=== PATIENT | female | born 1970 | race Asian ===

== ENCOUNTER 2018-02-17 17:05 | Emergency (ER) | payer BC ==
[~2018-02-17] VITALS: Ht 154.9 cm; Wt 56.2 kg
[~2018-02-17 17:05] MED LIST: ALBU0.63 NEB; FLUT1BLS INH; IPRA3AMP NPPB; LEVO500T47 PO; NICO-485 TD; PRED10TA14 PO
[2018-02-17] MEDS ORDERED: ALBUTEROL/IPRATROPIUM 2.5MG/0.5MG, 3 ML NPPB ONE (17:30)
[2018-02-17] MEDS ORDERED: ALBUTEROL/IPRATROPIUM 2.5MG/0.5MG, 3 ML ONE (17:36)
[2018-02-17] MEDS ORDERED: ALBUTEROL SULFATE 2.5 MG/3 ML ONE (18:03)
[2018-02-17 19:30] VITALS: BP 144/87
== END 2018-02-17 19:32 | disposition home or self-care (01) ==
LOC: ED 18:00
DX: J45.41 Moderate persistent asthma with (acute) exacerbation (principal)
CPT/HCPCS: 71045; 93005; 94640; 99284; J7512; J7620

== ENCOUNTER 2018-04-28 22:36 | Emergency (ER) | payer BC ==
[~2018-04-28] VITALS: Ht 157.5 cm; Wt 55.0 kg
[2018-04-28 23:16] LABS: MEAN CORPUSCULAR HEMOGLOBIN 28.6 pg (27.0-34.8); MEAN CORPUSCULAR HGB CONC 32.8 g/dL (32.4-35.8); MEAN CORPUSCULAR VOLUME 87.1 fL (80-100); PLATELET COUNT 249 x10^3/uL (130-400); RED BLOOD COUNT 5.22 x10^6/uL (3.82-5.3); RED CELL DISTRIBUTION WIDTH 12.8 % (9.6-15.2)
[2018-04-28] MEDS ORDERED: ALBUTEROL SULFATE 2.5 MG/3 ML ONE (23:18)
[2018-04-28 23:27] LABS: ANION GAP 6 mmol/L (5-15); CALCIUM 9.2 mg/dL (8.5-10.1); CHLORIDE 108 mmol/L (98-107); CREATININE 1.17 mg/dL (0.55-1.02)
[2018-04-28 23:30] LABS: TROPONIN I < 0.015 ng/mL (0.000-0.045)
[2018-04-28] MEDS ORDERED: ALBUTEROL SULFATE 2.5 MG/3 ML NPPB ONE (23:30)
[2018-04-28 23:43] LABS: MD YES
[2018-04-28 23:45] LABS: BASOS#(MANUAL) 0.15 x10^3/uL (0-0.1); BASOS% (MANUAL) 1 % (0-1); EOS#(MANUAL) 2.07 x10^3/uL (0.0-0.4); EOS% (MANUAL) 14 % (1-7); LYMPH#(MANUAL) 2.66 x10^3/uL (1-3.4); LYMPHS% (MANUAL) 18 % (22-44); MONOS#(MANUAL) 0.59 x10^3/uL (0.3-2.7); MONOS% (MANUAL) 4 % (2-9); SEG#(MANUAL) 9.32 x10^3/uL (1.8-6.8); SEGS% (MANUAL) 63 % (42-75)
[2018-04-28 23:46] LABS: <PLATELET ESTIMATE> ADEQUATE; <RBC MORPHOLOGY> NORMAL; LARGE PLATELETS 1+
[2018-04-29] MEDS ORDERED: ALBUTEROL/IPRATROPIUM 2.5MG/0.5MG, 3 ML NPPB ONE
[2018-04-29] MEDS ORDERED: ALBUTEROL/IPRATROPIUM 2.5MG/0.5MG, 3 ML ONE (00:43)
[2018-04-29] MEDS ORDERED: KETOROLAC 30 MG/1 ML IM ONE (01:00)
[2018-04-29] MEDS ORDERED: KETOROLAC 30 MG/1 ML ONE (01:08)
[2018-04-29 01:50] VITALS: BP 152/97
[2018-04-29] MEDS ORDERED: ALBUTEROL SULFATE 2.5 MG/3 ML NPPB SCH (07:00)
== END 2018-04-29 02:00 | disposition home or self-care (01) ==
LOC: ED 23:37
DX: J44.1 Chronic obstructive pulmonary disease with (acute) exacerbation (principal); J45.31 Mild persistent asthma with (acute) exacerbation
CPT/HCPCS: 36415; 71045; 80048; 82040; 84484; 85025; 93005; 94640; 96372; 99285; J1885; J7512; J7613; J7620

== ENCOUNTER 2019-03-16 07:53 | Emergency (ER) | payer SELFPAY ==
[~2019-03-16] VITALS: Ht 157.5 cm; Wt 53.3 kg
[~2019-03-16 07:53] MED LIST changes: -IPRA3AMP NPPB; +IPRA3AMP30 NPPB
--- NOTE | 2019-03-16 08:13 | NUR ---
Pt to room from triage. Pt c/o SOB/wheezing x1 week. Pt states hx of asthma, no relief of sx with home neb and home inhaler. Pt with increased WOB, wheezing, tripoding. Pt speaking in 2 word sentences. RT called to administer neb tx per protocol. Pt placed in gown, positioned for comfort in bed with warm blanket. Continuous heart, oxygen and BP monitors applied, all safety measures observed.
[2019-03-16] MEDS ORDERED: ALBUTEROL/IPRATROPIUM 2.5MG/0.5MG, 3 ML ONE (08:17)
--- NOTE | 2019-03-16 08:45 | NUR ---
Pt states she is feeling much better after the breathing tx. Pt appears more relaxed, speaking in full sentences, still wheezing but less so. Pt positioned for comfort.
--- NOTE | 2019-03-16 08:45 | NUR ---
Dr. Alvares at bedside to evaluate pt.
[2019-03-16 08:56] LABS: BASOPHILS # (AUTO) 0.06 x10^3/uL (0-0.1); BASOPHILS % (AUTO) 0 % (0-1); EOSINOPHILS # (AUTO) 1.72 x10^3/uL (0-0.4); EOSINOPHILS % (AUTO) 12 % (1-7); LYMPHOCYTES # (AUTO) 1.97 x10^3/uL (1-3.4); LYMPHOCYTES % (AUTO) 13 % (22-44); MD NO; MEAN CORPUSCULAR HEMOGLOBIN 28.1 pg (27.0-34.8); MEAN CORPUSCULAR HGB CONC 32.6 g/dL (32.4-35.8); MEAN CORPUSCULAR VOLUME 86.2 fL (80-100); MEAN PLATELET VOLUME 9.9 fL (7.4-10.4); MONOCYTES # (AUTO) 0.95 x10^3/uL (0.2-0.8); MONOCYTES % (AUTO) 6 % (2-9); NEUTROPHILS # (AUTO) 10.06 x10^3/uL (1.8-6.8); NEUTROPHILS % (AUTO) 68 % (42-75); PLATELET COUNT 230 x10^3/uL (130-400); RED BLOOD COUNT 5.32 x10^6/uL (3.82-5.3); RED CELL DISTRIBUTION WIDTH 12.5 % (9.6-15.2)
--- NOTE | 2019-03-16 08:56 | NUR ---
Verbal order for Prednisone 60mg PO per Dr Cesario Alvares. Administered.
[2019-03-16] MEDS ORDERED: ALBUTEROL/IPRATROPIUM 2.5MG/0.5MG, 3 ML NPPB SCH (09:00)
[2019-03-16 09:02] LABS: ALBUMIN 3.6 g/dL (3.4-5.0); ANION GAP 9 mmol/L (5-15); CALCIUM 8.4 mg/dL (8.5-10.1); CHLORIDE 107 mmol/L (98-107); CREATININE 1.07 mg/dL (0.55-1.02)
--- NOTE | 2019-03-16 09:32 | NUR ---
Pt resting in bed with eyes closed, resp even and unlabored, NADN. Pt awakens easily to this RN entering room. Pt denies needs.
[2019-03-16 10:19] VITALS: BP 129/84
== END 2019-03-16 10:22 | disposition home or self-care (01) ==
LOC: ED 09:24
DX: J45.40 Moderate persistent asthma, uncomplicated (principal)
CPT/HCPCS: 36415; 71045; 80048; 82040; 85025; 93005; 94640; 99284; J7512; J7620

== ENCOUNTER 2019-04-18 19:13 | Emergency (ER) | payer SELFPAY ==
[~2019-04-18] VITALS: Ht 157.5 cm; Wt 54.3 kg
[2019-04-18] MEDS ORDERED: DIAZEPAM 5 MG TABLET PO ONE (19:30)
[2019-04-18] MEDS ORDERED: KETOROLAC 30 MG/1 ML IM ONE (19:30)
--- NOTE | 2019-04-18 19:54 | NUR ---
NA AT 194
[2019-04-18] MEDS ORDERED: DIAZEPAM 5 MG TABLET ONE (20:03)
[2019-04-18] MEDS ORDERED: KETOROLAC 30 MG/1 ML ONE (20:03)
--- NOTE | 2019-04-18 20:08 | NUR ---
ROOMED AT 2008
--- NOTE | 2019-04-18 20:13 | NUR ---
MEDICATED PER EMAR FOR STIFF NECK X 2 DAYS-ONSET UPON WAKING. DENIES FEVER/TRAUMA. NO PRIOR HX OF SIMILIAR SXS NO NEUROLOGICAL DEFICITS
[2019-04-18] MEDS ORDERED: DIAZEPAM 5 MG/ML, 2ML IM ONE (20:40)
--- NOTE | 2019-04-18 20:49 | NUR ---
REPORT TO RISHI
--- NOTE | 2019-04-18 20:50 | NUR ---
PATIENT REPORT PAIN IMPROVED TO 2/10, ABLE TO MOVE NECK W/OUT DIFFICULTY
[2019-04-18 21:36] VITALS: BP 129/89
== END 2019-04-18 21:38 | disposition home or self-care (01) ==
LOC: ED 21:08
DX: G24.3 Spasmodic torticollis (principal); J44.9 Chronic obstructive pulmonary disease, unspecified
CPT/HCPCS: 96372; 99283; J1885; J3360

== ENCOUNTER 2019-04-20 20:04 | Emergency (ER) | payer SELFPAY ==
[~2019-04-20] VITALS: Ht 157.5 cm; Wt 54.0 kg
[2019-04-20 20:11] VITALS: BP 120/82
[2019-04-20] MEDS ORDERED: KETOROLAC 30 MG/1 ML ONE (20:48)
[2019-04-20] MEDS ORDERED: DIAZEPAM 5 MG TABLET ONE (20:48)
[2019-04-20] MEDS ORDERED: KETOROLAC 30 MG/1 ML IM ONE (21:00)
[2019-04-20] MEDS ORDERED: DIAZEPAM 5 MG TABLET PO ONE (21:00)
== END 2019-04-20 21:46 | disposition home or self-care (01) ==
LOC: ED 21:32
DX: G24.3 Spasmodic torticollis (principal); H10.32 Unspecified acute conjunctivitis, left eye; J44.9 Chronic obstructive pulmonary disease, unspecified
CPT/HCPCS: 96372; 99283; J1885

== ENCOUNTER 2019-05-09 17:33 | Emergency (ER) | payer OTHER ==
[~2019-05-09] VITALS: Ht 157.5 cm; Wt 46.0 kg
[2019-05-09] MEDS ORDERED: NAPR-685 PO (17:51)
--- NOTE | 2019-05-09 17:52 | NUR ---
PT AMBULATORY TO ROOM. COMPLAINING OF BILATERAL FOOT AND KNEE PAIN AND SWELLING IN BILATERAL FEET. STATES SWELLING IN LEFT FOOT STARTED TWO WEEKS AGO AND SWELLING IN RIGHT FOOT STARTED TWO DAYS AGO. NADN. BLANKET GIVEN. VSS. CALL LIGHT IN REACH.
--- NOTE | 2019-05-09 18:47 | NUR ---
PT IN XRAY AT THIS TIME.
[2019-05-09 18:54] LABS: BASOPHILS # (AUTO) 0.08 x10^3/uL (0-0.1); BASOPHILS % (AUTO) 1 % (0-1); EOSINOPHILS # (AUTO) 0.56 x10^3/uL (0-0.4); EOSINOPHILS % (AUTO) 4 % (1-7); LYMPHOCYTES # (AUTO) 2.13 x10^3/uL (1-3.4); LYMPHOCYTES % (AUTO) 16 % (22-44); MD NO; MEAN CORPUSCULAR HEMOGLOBIN 28.8 pg (27.0-34.8); MEAN CORPUSCULAR HGB CONC 32.9 g/dL (32.4-35.8); MEAN CORPUSCULAR VOLUME 87.4 fL (80-100); MEAN PLATELET VOLUME 9.2 fL (7.4-10.4); MONOCYTES # (AUTO) 1.02 x10^3/uL (0.2-0.8); MONOCYTES % (AUTO) 8 % (2-9); NEUTROPHILS # (AUTO) 9.28 x10^3/uL (1.8-6.8); NEUTROPHILS % (AUTO) 71 % (42-75); PLATELET COUNT 363 x10^3/uL (130-400); RED BLOOD COUNT 4.65 x10^6/uL (3.82-5.3)
--- NOTE | 2019-05-09 18:55 | NUR ---
REPORT GIVEN TO DUTCH LÓPEZ.
--- NOTE | 2019-05-09 18:56 | NUR ---
REPORT RECEIVED FROM CORIE JUDD.
[2019-05-09 19:04] LABS: ALBUMIN 3.4 g/dL (3.4-5.0); ANION GAP 5 mmol/L (5-15); CALCIUM 8.8 mg/dL (8.5-10.1); CHLORIDE 109 mmol/L (98-107); CREATININE 0.95 mg/dL (0.55-1.02)
[2019-05-09] MEDS ORDERED: LIDOCAINE-MPF 1%, 5ML ONE (19:09)
[2019-05-09] MEDS ORDERED: KETOROLAC 30 MG/1 ML ONE (19:20)
[2019-05-09] MEDS ORDERED: KETOROLAC 60 MG/2 ML IM ONE (19:30)
[2019-05-09 19:32] VITALS: BP 168/91
--- NOTE | 2019-05-09 19:32 | NUR ---
PT MEDICATED PER EMAR FOR PAIN. PT TOLERATED WELL.
--- NOTE | 2019-05-09 19:35 | NUR ---
PT WHEELED TO BR AND BACK TO ROOM. UA SEND.
[2019-05-09 19:36] LABS: HCT (SEDRATE) 40.6 % (34.6-47.8)
[2019-05-09 20:06] LABS: MICROSCOPIC AUTO
[2019-05-09 20:08] LABS: CULTURE INDICATED? YES
--- NOTE | 2019-05-09 21:25 | NUR ---
PT GIVEN DC INSTRUCTIONS AND SCRIPTS. PT EDUCATED REGARDING DC MEDICATIONS. PT WHEELED TO DC. PT'S AOX4. RESPS EVEN AND UNLABORED. NO ACUTE DISTRESS AT DC.
[2019-05-13 17:29] LABS: ANA SCREEN POSITIVE (Negative); ANTI-NUCLEAR ANTIBODY PATTERN NUCLEOLAR
== END 2019-05-09 21:26 | disposition home or self-care (01) ==
LOC: ED 18:06
DX: M13.0 Polyarthritis, unspecified (principal)
CPT/HCPCS: 20610; 36415; 73564; 80048; 81001; 82040; 84550; 85025; 85651; 85810; 86038; 86140; 86430; 86618; 87070; 87086; 87147; 87205; 89050; 89060; 96372; 99284; J1885; 86039

== ENCOUNTER 2019-09-17 21:08 | Inpatient (IN) | payer OTHER ==
[~2019-09-17] VITALS: Ht 160 cm; Wt 54.8 kg
[~2019-09-17 21:08] MED LIST changes: +NAPR-685 PO
--- NOTE | 2019-09-17 21:13 | NUR ---
UNABLE TO EKG IN TRIAGE DUE TO DISTRESS
--- NOTE | 2019-09-17 21:17 | NUR ---
ERP IN TO EVAL. CALL PLACED TO RESP.
--- NOTE | 2019-09-17 21:21 | NUR ---
RESP THERAPIST AT BEDSIDE FOR BREATHING TX.
[2019-09-17] MEDS ORDERED: ALBUTEROL SULFATE 2.5 MG/3 ML NPPB ONE (21:30)
[2019-09-17 21:39] LABS: BASOPHILS # (AUTO) 0.27 x10^3/uL (0-0.1); BASOPHILS % (AUTO) 2 % (0-1); EOSINOPHILS # (AUTO) 0.98 x10^3/uL (0-0.4); EOSINOPHILS % (AUTO) 6 % (1-7); LYMPHOCYTES # (AUTO) 2.62 x10^3/uL (1-3.4); LYMPHOCYTES % (AUTO) 16 % (22-44); MD NO; MEAN CORPUSCULAR HEMOGLOBIN 25.7 pg (27.0-34.8); MEAN CORPUSCULAR HGB CONC 31.8 g/dL (32.4-35.8); MEAN CORPUSCULAR VOLUME 80.9 fL (80-100); MEAN PLATELET VOLUME 9.6 fL (7.4-10.4); MONOCYTES # (AUTO) 0.76 x10^3/uL (0.2-0.8); MONOCYTES % (AUTO) 5 % (2-9); NEUTROPHILS # (AUTO) 11.54 x10^3/uL (1.8-6.8); NEUTROPHILS % (AUTO) 71 % (42-75); PLATELET COUNT 255 x10^3/uL (130-400); RED BLOOD COUNT 5.22 x10^6/uL (3.82-5.3); RED CELL DISTRIBUTION WIDTH 14.6 % (9.6-15.2)
--- NOTE | 2019-09-17 21:41 | NUR ---
PT MEDICATED PER JAN. CONTINUES WITH RAPID RESP BUT IS ABLE TO SLOW RESP AND SPEAK FULL SENTENCES WITH LITTLE DIFFICULTY WHEN ASKED QUESTIONS. STATES SHE FEELS NO RELIEF AFTER BREATHING TX. WARM BLANKET GIVEN. ERP TO BE NOTIFIED OF PT STATUS. CALL LIGHT IN REACH.
[2019-09-17 21:48] LABS: ALBUMIN 3.9 g/dL (3.4-5.0); ANION GAP 8 mmol/L (5-15); CALCIUM 8.5 mg/dL (8.5-10.1); CHLORIDE 111 mmol/L (98-107); CREATININE 1.03 mg/dL (0.55-1.02)
[2019-09-17 21:52] LABS: TROPONIN I < 0.015 ng/mL (0.000-0.045)
--- NOTE | 2019-09-17 22:00 | NUR ---
ERP IN TO RECHECK PT. AWAITING FURTHER DISPO.
--- NOTE | 2019-09-17 22:47 | NUR ---
PT UP TO BR WITH STEADY GAIT. WHEEZING CONTINUES T/O. NO S/S OF ACUTE RESP DISTRESS. ERP AWARE. OK TO TRANSFER TO FLOOR AT THIS TIME.
[2019-09-17 23:11] VITALS: BP 168/108
[2019-09-18] MEDS ORDERED: POLYETHYLENE GLYCOL 17 GM PACKET PO PRN (00:30)
[2019-09-18] MEDS ORDERED: hydrALAzine 20 MG/ML, 1ML IVPush PRN (00:30)
[2019-09-18] MEDS ORDERED: morphine SULFATE 10 MG/ML, 1ML IVPush PRN (00:30)
[2019-09-18] MEDS ORDERED: BISACODYL 10 MG SUPP PR PRN (00:30)
[2019-09-18] MEDS ORDERED: PROMETHAZINE 25 MG/ML, 1ML IM PRN (00:30)
[2019-09-18] MEDS ORDERED: ONDANSETRON 2MG/ML, 2ML IVPush PRN (00:30)
[2019-09-18] MEDS ORDERED: DOCUSATE 100 MG CAPSULE PO PRN (00:30)
[2019-09-18] MEDS ORDERED: ONDANSETRON ODT 4 MG PO PRN (00:30)
[2019-09-18] MEDS: ENOXAPARIN 40 MG/0.4 ML SQ SCH (00:50)
[2019-09-18] MEDS: methylPREDNISolone SOD SUCC 125 MG/2 ML IVPush SCH ×4 (00:50→17:31)
[2019-09-18] MEDS: DOXYCYCLINE 100MG TABLET PO SCH ×3 (01:10→20:39)
[2019-09-18 01:21] LABS: HEMOGLOBIN A1C 5.4 % (4.2-6.3)
[2019-09-18 01:23] VITALS: BP 151/92
[2019-09-18 01:23] LABS: FREE T4 (FREE THYROXINE) 1.07 ng/dL (0.76-1.46)
[2019-09-18] MEDS: ALBUTEROL/IPRATROPIUM 2.5MG/0.5MG, 3 ML NPPB SCH ×5 (02:06→19:11)
[2019-09-18 07:15] VITALS: BP 156/98
[2019-09-18 07:25] VITALS: BP 167/79
[2019-09-18] MEDS ORDERED: ALBUTEROL SULFATE 2.5 MG/3 ML NPPB PRN (11:30)
[2019-09-18 12:03] VITALS: BP 142/86
[2019-09-18] MEDS ORDERED: OMNIPAQUE 350 MG/ML, 100ML BOTTLE ONE (17:29)
[2019-09-18] MEDS: ACETAMINOPHEN 325 MG TABLET PO PRN (17:37)
[2019-09-18] MEDS ORDERED: FUROSEMIDE 20 MG/2 ML IV ONE (18:00)
[2019-09-18] MEDS: CEFTRIAXONE PMX 2GM/50ML 50 ML IV SCH (20:40)
[2019-09-18 20:53] VITALS: BP 143/93
[2019-09-19] MEDS: methylPREDNISolone SOD SUCC 125 MG/2 ML IVPush SCH ×4 (00:08→18:08)
[2019-09-19] MEDS: ENOXAPARIN 40 MG/0.4 ML SQ SCH (00:09)
[2019-09-19 00:11] VITALS: BP 133/85
[2019-09-19 05:45] LABS: MEAN CORPUSCULAR HEMOGLOBIN 25.6 pg (27.0-34.8); MEAN CORPUSCULAR HGB CONC 31.8 g/dL (32.4-35.8); MEAN CORPUSCULAR VOLUME 80.5 fL (80-100); MEAN PLATELET VOLUME 10.9 fL (7.4-10.4); PLATELET COUNT 233 x10^3/uL (130-400); RED BLOOD COUNT 5.32 x10^6/uL (3.82-5.3); RED CELL DISTRIBUTION WIDTH 14.7 % (9.6-15.2)
[2019-09-19 05:46] LABS: ALBUMIN 3.9 g/dL (3.4-5.0); ANION GAP 8 mmol/L (5-15); CALCIUM 9.1 mg/dL (8.5-10.1); CHLORIDE 107 mmol/L (98-107)
[2019-09-19 05:49] LABS: ALANINE AMINOTRANSFERASE 18 U/L (12-78); ALKALINE PHOSPHATASE 83 U/L (45-117); BILIRUBIN,TOTAL 0.5 mg/dL (0.2-1.0); CHOL/HDL RATIO 2.4; CHOLESTEROL, TOTAL 182 mg/dL (140-239); CREATININE 1.03 mg/dL (0.55-1.02); HDL CHOL % 42 % (28-40); HDL CHOLESTEROL (DIRECT) 76 mg/dL (40-60); LDL CHOLESTEROL,CALCULATED 88 mg/dL (54-169); LDL/HDL RATIO 1.2 (0.5-3.0); TOTAL PROTEIN 8.2 g/dL (6.4-8.2); TRIGLYCERIDES 88 mg/dL (50-200); VLDL CHOLESTEROL 18 mg/dL (0-25)
[2019-09-19 06:03] LABS: MD YES
[2019-09-19 06:06] LABS: BAND#(MANUAL) 0.24 x10^3/uL; BANDS%(MANUAL) 1 % (0-7); LYMPHS% (MANUAL) 5 % (22-44); SEG#(MANUAL) 22.47 x10^3/uL (1.8-6.8); SEGS% (MANUAL) 94 % (42-75)
[2019-09-19 06:07] LABS: <PLATELET ESTIMATE> ADEQUATE; <PLT MORPHOLOGY> NORMAL PLT MORPH; <RBC MORPHOLOGY> NORMAL
[2019-09-19 06:10] VITALS: BP 142/94
[2019-09-19] MEDS: ALBUTEROL/IPRATROPIUM 2.5MG/0.5MG, 3 ML NPPB SCH ×4 (06:56→18:53)
[2019-09-19] MEDS: DOXYCYCLINE 100MG TABLET PO SCH ×2 (10:19→19:56)
[2019-09-19] MEDS ORDERED: SODIUM CHLORIDE 0.9% 1,000 ML IV SCH (12:30)
[2019-09-19] MEDS ORDERED: PROPOFOL 10 MG/ML, 50ML ONE (12:56)
[2019-09-19] MEDS: ACETAMINOPHEN 325 MG TABLET PO PRN (14:32)
[2019-09-19 19:12] VITALS: BP 130/83
[2019-09-19] MEDS: CEFTRIAXONE PMX 2GM/50ML 50 ML IV SCH (19:55)
[2019-09-19] MEDS: OXYcodone IR 5MG TABLET PO PRN (19:56)
[2019-09-20] MEDS: ENOXAPARIN 40 MG/0.4 ML SQ SCH (00:17)
[2019-09-20] MEDS: methylPREDNISolone SOD SUCC 125 MG/2 ML IVPush SCH ×4 (00:17→20:48)
[2019-09-20 03:37] VITALS: BP 132/88
[2019-09-20 04:54] LABS: ANION GAP 8 mmol/L (5-15); CALCIUM 8.6 mg/dL (8.5-10.1); CHLORIDE 107 mmol/L (98-107); CREATININE 1.05 mg/dL (0.55-1.02); MEAN CORPUSCULAR HGB CONC 32.3 g/dL (32.4-35.8); MEAN CORPUSCULAR VOLUME 80.5 fL (80-100); MEAN PLATELET VOLUME 10.7 fL (7.4-10.4); PLATELET COUNT 227 x10^3/uL (130-400); RED BLOOD COUNT 4.99 x10^6/uL (3.82-5.3); RED CELL DISTRIBUTION WIDTH 14.8 % (9.6-15.2)
[2019-09-20 05:48] LABS: BASOPHILS # (AUTO) 0.02 x10^3/uL (0-0.1); BASOPHILS % (AUTO) 0 % (0-1); EOSINOPHILS # (AUTO) 0.19 x10^3/uL (0-0.4); EOSINOPHILS % (AUTO) 1 % (1-7); LYMPHOCYTES # (AUTO) 0.82 x10^3/uL (1-3.4); LYMPHOCYTES % (AUTO) 4 % (22-44); MD SCAN; MONOCYTES # (AUTO) 0.19 x10^3/uL (0.2-0.8); MONOCYTES % (AUTO) 1 % (2-9); NEUTROPHILS # (AUTO) 17.71 x10^3/uL (1.8-6.8); NEUTROPHILS % (AUTO) 94 % (42-75)
[2019-09-20] MEDS: ALBUTEROL/IPRATROPIUM 2.5MG/0.5MG, 3 ML NPPB SCH ×4 (06:29→19:42)
[2019-09-20 07:46] VITALS: BP 113/71
[2019-09-20] MEDS: DOXYCYCLINE 100MG TABLET PO SCH ×2 (09:03→20:48)
[2019-09-20 12:59] VITALS: BP 138/90
[2019-09-20] MEDS: CEFTRIAXONE PMX 2GM/50ML 50 ML IV SCH (20:48)
[2019-09-20 21:58] VITALS: BP 154/98
[2019-09-21] MEDS: ENOXAPARIN 40 MG/0.4 ML SQ SCH (00:30)
[2019-09-21 01:15] VITALS: BP 154/101
[2019-09-21 02:25] VITALS: BP 122/79
[2019-09-21] MEDS: OXYcodone IR 5MG TABLET PO PRN (02:25)
[2019-09-21 04:49] LABS: BASOPHILS # (AUTO) 0.04 x10^3/uL (0-0.1); BASOPHILS % (AUTO) 0 % (0-1); EOSINOPHILS # (AUTO) 0.15 x10^3/uL (0-0.4); EOSINOPHILS % (AUTO) 1 % (1-7); LYMPHOCYTES # (AUTO) 0.97 x10^3/uL (1-3.4); LYMPHOCYTES % (AUTO) 7 % (22-44); MD NO; MEAN CORPUSCULAR HEMOGLOBIN 25.7 pg (27.0-34.8); MEAN CORPUSCULAR HGB CONC 31.8 g/dL (32.4-35.8); MEAN CORPUSCULAR VOLUME 80.7 fL (80-100); MEAN PLATELET VOLUME 10.2 fL (7.4-10.4); MONOCYTES # (AUTO) 0.34 x10^3/uL (0.2-0.8); MONOCYTES % (AUTO) 3 % (2-9); NEUTROPHILS # (AUTO) 12.29 x10^3/uL (1.8-6.8); NEUTROPHILS % (AUTO) 89 % (42-75); PLATELET COUNT 229 x10^3/uL (130-400); RED BLOOD COUNT 5.26 x10^6/uL (3.82-5.3); RED CELL DISTRIBUTION WIDTH 14.7 % (9.6-15.2)
[2019-09-21 04:58] LABS: ANION GAP 7 mmol/L (5-15); CALCIUM 8.7 mg/dL (8.5-10.1); CHLORIDE 107 mmol/L (98-107)
[2019-09-21 04:59] LABS: CREATININE 0.89 mg/dL (0.55-1.02)
[2019-09-21] MEDS: ALBUTEROL/IPRATROPIUM 2.5MG/0.5MG, 3 ML NPPB SCH ×4 (06:00→21:00)
[2019-09-21 08:25] VITALS: BP 113/76
[2019-09-21] MEDS: methylPREDNISolone SOD SUCC 125 MG/2 ML IVPush SCH (09:40)
[2019-09-21] MEDS: DOXYCYCLINE 100MG TABLET PO SCH ×2 (09:40→22:03)
[2019-09-21] MEDS ORDERED: ACETAMINOPHEN 325 MG TABLET PO PRN (10:00)
[2019-09-21 13:14] VITALS: BP 134/86
[2019-09-21] MEDS ORDERED: SODIUM CHLORIDE 0.9% 1,000 ML IV SCH (15:00)
[2019-09-21] MEDS: AMOXICILLIN 500 MG CAPSULE PO SCH ×2 (18:22→22:02)
[2019-09-21 19:45] VITALS: BP 149/61
[2019-09-22 01:13] VITALS: BP_SYST 155; BP_SYST 156; BP_DIAS 100; BP_DIAS 101
[2019-09-22] MEDS: ENOXAPARIN 40 MG/0.4 ML SQ SCH (01:18)
[2019-09-22] MEDS ORDERED: hydrALAzine 20 MG/ML, 1ML IV ONE (02:30)
[2019-09-22 02:39] VITALS: BP 161/101
[2019-09-22 04:14] VITALS: BP 127/79
[2019-09-22 06:55] VITALS: BP 138/92
[2019-09-22] MEDS: ALBUTEROL/IPRATROPIUM 2.5MG/0.5MG, 3 ML NPPB SCH (07:15)
[2019-09-22] MEDS ORDERED: ACID1TAB7 PO (08:58)
[2019-09-22] MEDS ORDERED: DOXY100T PO (08:58)
[2019-09-22] MEDS ORDERED: AMOX-291 PO (08:58)
[2019-09-22] MEDS ORDERED: LACTOBACILLUS CHEW TABLET PO SCH (09:00)
[2019-09-22] MEDS: AMOXICILLIN 500 MG CAPSULE PO SCH (09:16)
[2019-09-22] MEDS: DOXYCYCLINE 100MG TABLET PO SCH (09:16)
== END 2019-09-22 10:20 | disposition home or self-care (01) | DRG 190 ==
LOC: ED 21:39 → EDIP 22:27 → 4WST 09-18 → DCLOUNGE 09-22 10:15
PROVIDERS: ADMIT Internal Medicine; ATTEND Internal Medicine
DX: J44.1 Chronic obstructive pulmonary disease with (acute) exacerbation (principal); J18.1 Lobar pneumonia, unspecified organism; J45.41 Moderate persistent asthma with (acute) exacerbation; J44.0 Chronic obstructive pulmonary disease with (acute) lower respiratory infection; F17.210 Nicotine dependence, cigarettes, uncomplicated; F41.1 Generalized anxiety disorder; G47.00 Insomnia, unspecified; I10 Essential (primary) hypertension; I35.1 Nonrheumatic aortic (valve) insufficiency; M19.90 Unspecified osteoarthritis, unspecified site; R79.89 Other specified abnormal findings of blood chemistry; R09.02 Hypoxemia; Z71.6 Tobacco abuse counseling; Z98.51 Tubal ligation status; Z79.899 Other long term (current) drug therapy
CPT/HCPCS: 36415; 99285; J7613; J7620; 0399T; 71045; 71275; 80048; 80053; 80061; 82040; 83036; 83735; 84439; 84443; 84484; 85025; 87040; 87070; 87205; 93005; 93306; 93312; 93325; 94640; G0378; J0696; J1650; J2405; J2704; Q0162; Q9967; J0360; J1940; J2930; J7030; J7512

== ENCOUNTER 2019-10-18 23:52 | Inpatient (IN) | payer OTHER ==
[~2019-10-18] VITALS: Ht 157.5 cm; Wt 52.9 kg
[~2019-10-18 23:52] MED LIST changes: +ACID1TAB7 PO; +AMOX-291 PO; +DOXY100T PO
[2019-10-19] MEDS ORDERED: methylPREDNISolone SOD SUCC 125 MG/2 ML IV ONE
[2019-10-19] MEDS ORDERED: SODIUM CHLORIDE FLUSH 10ML SYR IVF ONE
[2019-10-19] MEDS ORDERED: MAGNESIUM SULFATE PMX 2GM/50ML 50 ML IVPB ONE
[2019-10-19] MEDS ORDERED: MAGNESIUM SULFATE PMX 2GM/50ML 0 ML ONE (00:04)
[2019-10-19] MEDS ORDERED: methylPREDNISolone SOD SUCC 125 MG/2 ML ONE (00:04)
[2019-10-19] MEDS ORDERED: ALBUTEROL/IPRATROPIUM 2.5MG/0.5MG, 3 ML ONE (00:06)
[2019-10-19 00:17] LABS: MEAN CORPUSCULAR HEMOGLOBIN 26.1 pg (27.0-34.8); MEAN CORPUSCULAR HGB CONC 31.9 g/dL (32.4-35.8); MEAN PLATELET VOLUME 10.2 fL (7.4-10.4); PLATELET COUNT 255 x10^3/uL (130-400); RED BLOOD COUNT 5.56 x10^6/uL (3.82-5.3)
[2019-10-19 00:28] LABS: ALANINE AMINOTRANSFERASE 21 U/L (12-78); ALBUMIN 4.3 g/dL (3.4-5.0); ANION GAP 5 mmol/L (5-15); CALCIUM 8.5 mg/dL (8.5-10.1); CHLORIDE 109 mmol/L (98-107)
[2019-10-19 00:33] LABS: ALKALINE PHOSPHATASE 96 U/L (45-117); BILIRUBIN,TOTAL 0.5 mg/dL (0.2-1.0); TOTAL PROTEIN 7.6 g/dL (6.4-8.2); TROPONIN I < 0.015 ng/mL (0.000-0.045)
[2019-10-19 00:38] LABS: BASOPHILS # (AUTO) 0.43 x10^3/uL (0-0.1); BASOPHILS % (AUTO) 4 % (0-1); EOSINOPHILS # (AUTO) 2.51 x10^3/uL (0-0.4); EOSINOPHILS % (AUTO) 22 % (1-7); LYMPHOCYTES # (AUTO) 2.88 x10^3/uL (1-3.4); LYMPHOCYTES % (AUTO) 25 % (22-44); MD SCAN; MONOCYTES # (AUTO) 0.84 x10^3/uL (0.2-0.8); MONOCYTES % (AUTO) 7 % (2-9); NEUTROPHILS # (AUTO) 4.95 x10^3/uL (1.8-6.8); NEUTROPHILS % (AUTO) 43 % (42-75)
--- NOTE | 2019-10-19 01:14 | NUR ---
TASK RN: REPORT TO DUTCH OSPINA
[2019-10-19] MEDS ORDERED: MAGNESIUM SULFATE PMX 2GM/50ML 50 ML ONE (01:16)
--- NOTE | 2019-10-19 01:26 | NUR ---
TASK RN: FIRST CONTACT WITH PT. PT SITTING UP IN [facility], AWAKE/ALERT. NAD NOTED. PT W FREQUENT DRY COUGH. PT REPORTS SOME IMPROVEMENT IN SOB WITH MEDICATIONS BUT STILL FEELS SOB. DENIES CP/DIZZINESS. SPO2 >90% ON 3L BY NC. PT MEDICATED PER EMAR. BP/SPO2/ECG MONITORING IN PLACE. NSR ON MONITOR. Addendum: 10/19/19 at 0127 by NAS PT SPEAKING IN FULL SENTENCES WO DIFFICULTY.
[2019-10-19 01:57] VITALS: BP 136/92
[2019-10-19] MEDS ORDERED: ONDANSETRON 2MG/ML, 2ML IVPush PRN (02:00)
[2019-10-19] MEDS ORDERED: LACTATED RINGERS 1,000 ML IV SCH (02:00)
[2019-10-19] MEDS ORDERED: HEPARIN 5,000 UNITS/ML, 1ML SQ SCH (02:00)
[2019-10-19] MEDS ORDERED: ACETAMINOPHEN 325 MG TABLET PO PRN (02:00)
[2019-10-19] MEDS ORDERED: methylPREDNISolone SOD SUCC 125 MG/2 ML IVPush SCH (02:00)
[2019-10-19] MEDS ORDERED: ALBUTEROL/IPRATROPIUM 2.5MG/0.5MG, 3 ML NPPB PRN ×2 (05:00)
[2019-10-19] MEDS: ALBUTEROL/IPRATROPIUM 2.5MG/0.5MG, 3 ML NPPB SCH ×4 (06:45→19:25)
[2019-10-19 07:50] VITALS: BP 124/79
[2019-10-19] MEDS: ENOXAPARIN 40 MG/0.4 ML SQ SCH (08:27)
[2019-10-19] MEDS: CETIRIZINE 10 MG TABLET PO SCH (08:27)
[2019-10-19] MEDS: methylPREDNISolone SOD SUCC 40 MG/ML IV SCH ×3 (08:27→23:37)
[2019-10-19] MEDS ORDERED: FLUTICASONE/VILANTEROL 200-25MCG/INH HOMEINH SCH (09:00)
[2019-10-19] MEDS: BUDESONIDE 0.5 MG/2 ML INHA HHN SCH ×2 (09:55→19:25)
[2019-10-19 12:30] VITALS: BP 122/82
[2019-10-19] MEDS ORDERED: CYCLOBENZAPRINE 10 MG TABLET ONE (12:50)
[2019-10-19] MEDS: CYCLOBENZAPRINE 10 MG TABLET PO PRN ×2 (12:52→23:43)
[2019-10-19 19:54] VITALS: BP 140/85
[2019-10-20 01:18] VITALS: BP 137/83
[2019-10-20] MEDS: ALBUTEROL/IPRATROPIUM 2.5MG/0.5MG, 3 ML NPPB SCH ×5 (03:00→20:31)
[2019-10-20 03:19] VITALS: BP 132/86
[2019-10-20 06:06] LABS: ANION GAP 6 mmol/L (5-15); BASOPHILS # (AUTO) 0.01 x10^3/uL (0-0.1); BASOPHILS % (AUTO) 0 % (0-1); CALCIUM 8.8 mg/dL (8.5-10.1); CHLORIDE 111 mmol/L (98-107); EOSINOPHILS % (AUTO) 0 % (1-7); LYMPHOCYTES # (AUTO) 0.91 x10^3/uL (1-3.4); LYMPHOCYTES % (AUTO) 7 % (22-44); MD NO; MEAN CORPUSCULAR HEMOGLOBIN 25.9 pg (27.0-34.8); MEAN CORPUSCULAR HGB CONC 31.6 g/dL (32.4-35.8); MEAN CORPUSCULAR VOLUME 81.8 fL (80-100); MEAN PLATELET VOLUME 10.3 fL (7.4-10.4); MONOCYTES # (AUTO) 0.34 x10^3/uL (0.2-0.8); MONOCYTES % (AUTO) 3 % (2-9); NEUTROPHILS # (AUTO) 11.64 x10^3/uL (1.8-6.8); NEUTROPHILS % (AUTO) 90 % (42-75); PLATELET COUNT 229 x10^3/uL (130-400); RED BLOOD COUNT 4.92 x10^6/uL (3.82-5.3); RED CELL DISTRIBUTION WIDTH 19.2 % (9.6-15.2)
[2019-10-20 06:09] LABS: CREATININE 0.82 mg/dL (0.55-1.02)
[2019-10-20] MEDS: BUDESONIDE 0.5 MG/2 ML INHA HHN SCH ×2 (07:10→20:31)
[2019-10-20 07:51] VITALS: BP 116/77
[2019-10-20] MEDS: ENOXAPARIN 40 MG/0.4 ML SQ SCH (08:17)
[2019-10-20] MEDS: methylPREDNISolone SOD SUCC 40 MG/ML IV SCH ×2 (08:17→15:54)
[2019-10-20] MEDS: CETIRIZINE 10 MG TABLET PO SCH (08:17)
[2019-10-20 12:24] VITALS: BP 125/83
[2019-10-20 21:26] VITALS: BP 128/84
[2019-10-21] MEDS: methylPREDNISolone SOD SUCC 40 MG/ML IV SCH ×2 (00:05→09:31)
[2019-10-21 00:08] VITALS: BP 134/82
[2019-10-21] MEDS: ALBUTEROL/IPRATROPIUM 2.5MG/0.5MG, 3 ML NPPB SCH (06:54)
[2019-10-21] MEDS: BUDESONIDE 0.5 MG/2 ML INHA HHN SCH (06:55)
[2019-10-21 07:54] VITALS: BP 148/91
[2019-10-21] MEDS: CETIRIZINE 10 MG TABLET PO SCH (09:31)
[2019-10-21] MEDS: ENOXAPARIN 40 MG/0.4 ML SQ SCH (09:32)
[2019-10-21] MEDS: CYCLOBENZAPRINE 10 MG TABLET PO PRN (09:34)
[2019-10-21] MEDS ORDERED: PRED5TAB PO (11:14)
[2019-10-21] MEDS ORDERED: BUDE0.5A HHN ×2 (11:14)
[2019-10-21] MEDS ORDERED: CETI10TA18 PO (11:14)
[2019-10-21] MEDS ORDERED: IPRA3AMP30 NPPB (11:14)
[2019-10-21] MEDS ORDERED: FURO-93 PO (11:18)
[2019-10-21] MEDS ORDERED: POTA10TA5 PO (11:18)
[2019-10-21] MEDS ORDERED: FUROSEMIDE 20 MG/2 ML IV ONE (11:30)
[2019-10-21] MEDS ORDERED: FUROSEMIDE 20 MG TABLET ONE (11:52)
[2019-10-21] MEDS ORDERED: FUROSEMIDE 20 MG TABLET PO ONE (12:00)
[2019-10-21] MEDS ORDERED: FLUT1DIS3 INH ×2 (15:04)
[2019-10-21] MEDS ORDERED: FLUT12AE INH (15:07)
[2019-10-21] MEDS ORDERED: ALBUTEROL/IPRATROPIUM 2.5MG/0.5MG, 3 ML NPPB SCH (16:00)
== END 2019-10-21 15:50 | disposition home or self-care (01) | DRG 189 ==
LOC: ED 10-19 00:16 → EDIP 10-19 01:00 → 4EST 10-19 01:45 → 4WST 10-20 18:16
PROVIDERS: ADMIT Family Medicine; ATTEND Internal Medicine
DX: J96.01 Acute respiratory failure with hypoxia (principal); J44.1 Chronic obstructive pulmonary disease with (acute) exacerbation; J45.41 Moderate persistent asthma with (acute) exacerbation; D72.1 Eosinophilia; F41.1 Generalized anxiety disorder; I35.1 Nonrheumatic aortic (valve) insufficiency; Z77.22 Contact with and (suspected) exposure to environmental tobacco smoke (acute) (chronic); M19.90 Unspecified osteoarthritis, unspecified site; Z98.51 Tubal ligation status
CPT/HCPCS: 36415; J7620; J7626; 71045; 80048; 80053; 83880; 84484; 85025; 93005; 94640; 99285; G0378; J1644; J1650; J2920; J2930; J3475; J7120

== ENCOUNTER 2019-12-23 04:41 | Emergency (ER) | payer MEDICAID, OTHER ==
[~2019-12-23] VITALS: Ht 157.5 cm; Wt 53.8 kg
[~2019-12-23 04:41] MED LIST changes: +BUDE0.5A HHN; +CETI10TA18 PO; +FLUT12AE INH; +FLUT1DIS3 INH; +FURO-93 PO; +POTA10TA5 PO; +PRED5TAB PO
[2019-12-23] MEDS ORDERED: ALBUTEROL SULFATE 2.5 MG/3 ML ONE (04:57)
--- NOTE | 2019-12-23 05:16 | NUR ---
Pt alert and sitting up on gurney in high-fowlers. Pt reports hx of asthma. Pt reports taking her breathing tx's at home without relief.
[2019-12-23] MEDS ORDERED: ALBUTEROL/IPRATROPIUM 2.5MG/0.5MG, 3 ML NPPB PRN (05:30)
--- NOTE | 2019-12-23 05:30 | NUR ---
Lungs clear post tx. Pt oxygen down to 1L. Pt on pulse ox/HR monitor. Call light within reach. Warm blanket provided.
--- NOTE | 2019-12-23 05:50 | NUR ---
Pt medicated per JAN. Oxygen turned off.
--- NOTE | 2019-12-23 06:04 | NUR ---
Pt reports new onset sharp chest pain to right side. Pt VSS, NAD, pt looks unchanged. PA notified. Addendum: 12/23/19 at 0617 by MRICH left side*
--- NOTE | 2019-12-23 06:17 | NUR ---
JANETTE and at bedside for re-eval
[2019-12-23] MEDS ORDERED: KETOROLAC 30 MG/1 ML ONE (06:19)
--- NOTE | 2019-12-23 06:27 | NUR ---
Pt medicated per MAR.
[2019-12-23] MEDS ORDERED: KETOROLAC 30 MG/1 ML IM ONE (06:30)
--- NOTE | 2019-12-23 06:50 | NUR ---
Pt d/c'd to self care. Pt alert, oriented, ambulatory and on RA at time of d/c. Pt educated on prescription, home care, follow-up, and S/Sx to return. Pt VU. Pt ambulated out of ER.
[2019-12-23 06:51] VITALS: BP 155/93
== END 2019-12-23 06:53 | disposition home or self-care (01) ==
LOC: ED 06:37
DX: J45.41 Moderate persistent asthma with (acute) exacerbation (principal); R07.89 Other chest pain
CPT/HCPCS: 71046; 93005; 94640; 96372; 99283; J1885; J7512

== ENCOUNTER 2019-12-30 08:55 | Inpatient (IN) | payer MEDICAID ==
[~2019-12-30] VITALS: Ht 157.5 cm; Wt 58.5 kg
[2019-12-30] MEDS ORDERED: ALBUTEROL/IPRATROPIUM 2.5MG/0.5MG, 3 ML ONE (09:11)
--- NOTE | 2019-12-30 09:11 | NUR ---
PT HERE WITH C/O ASTHMA ATTACK, STATES SHE HAS HAD THESE BEFORE. PT MARKEDLY SOB, TRIPOD POSITIONING AND ACCESSORY MUSCLE USE. PT ON 2L NC AND ON FULL MONITOR. RT AT BEDSIDE. PT DRESSED IN GOWN, CALL LIGHT WITHIN REACH, SIDERAIL X [address]
[2019-12-30] MEDS ORDERED: MAGNESIUM SULFATE PMX 2GM/50ML 50 ML ONE (09:47)
--- NOTE | 2019-12-30 09:57 | NUR ---
PIV ESTABLISHED, PT MEDICATED PER ORDERS.
[2019-12-30] MEDS ORDERED: ALBUTEROL/IPRATROPIUM 2.5MG/0.5MG, 3 ML NPPB ONE (10:00)
[2019-12-30] MEDS ORDERED: SODIUM CHLORIDE FLUSH 10ML SYR IVF ONE (10:00)
[2019-12-30] MEDS ORDERED: MAGNESIUM SULFATE PMX 2GM/50ML 50 ML IVPB ONE (10:00)
[2019-12-30] MEDS ORDERED: ALBUTEROL SULFATE 2.5 MG/3 ML NPPB ONE (11:00)
[2019-12-30] MEDS ORDERED: ALBUTEROL SULFATE 2.5 MG/3 ML ONE (11:03)
--- NOTE | 2019-12-30 11:26 | NUR ---
PER TASK RN, PT AMBULATORY WITH STEADY GAIT, O2 SATS 90-93% BUT HR JUMPED FROM 90-100S UP TO 120S. UPDATED.
--- NOTE | 2019-12-30 12:01 | NUR ---
MED REC COMPLETED.
[2019-12-30] MEDS: SODIUM CHLORIDE 0.9% 1,000 ML IV SCH (12:29)
[2019-12-30] MEDS ORDERED: hydrALAzine 20 MG/ML, 1ML IVPush PRN (12:30)
[2019-12-30] MEDS ORDERED: GUAIFENESIN/COD200MG-20MG/10ML LIQUID PO PRN (12:30)
[2019-12-30] MEDS ORDERED: LABETALOL 5MG/ML, 20ML IVPush PRN (12:30)
[2019-12-30] MEDS ORDERED: ONDANSETRON ODT 4 MG PO PRN (12:30)
[2019-12-30] MEDS ORDERED: DOCUSATE 100 MG CAPSULE PO PRN (12:30)
[2019-12-30] MEDS ORDERED: POLYETHYLENE GLYCOL 17 GM PACKET PO PRN (12:30)
[2019-12-30] MEDS ORDERED: ACETAMINOPHEN 325 MG TABLET PO PRN (12:30)
[2019-12-30] MEDS ORDERED: METOCLOPRAMIDE 5 MG/ML, 2ML IVPush PRN (12:30)
--- NOTE | 2019-12-30 12:42 | NUR ---
LAB AT BEDSIDE.
[2019-12-30] MEDS: ENOXAPARIN 40 MG/0.4 ML SQ SCH (12:43)
[2019-12-30 12:52] LABS: MEAN CORPUSCULAR HEMOGLOBIN 28.3 pg (27.0-34.8); MEAN CORPUSCULAR HGB CONC 33.2 g/dL (32.4-35.8); MEAN CORPUSCULAR VOLUME 85.1 fL (80-100); MEAN PLATELET VOLUME 9.9 fL (7.4-10.4); PLATELET COUNT 208 x10^3/uL (130-400); RED BLOOD COUNT 5.37 x10^6/uL (3.82-5.3); RED CELL DISTRIBUTION WIDTH 15.4 % (9.6-15.2)
[2019-12-30] MEDS ORDERED: methylPREDNISolone SOD SUCC 125 MG/2 ML ONE (12:53)
[2019-12-30] MEDS ORDERED: AZITHROMYCIN 500 MG TABLET ONE (12:54)
[2019-12-30] MEDS: methylPREDNISolone SOD SUCC 125 MG/2 ML IVPush SCH ×2 (12:56→20:49)
--- NOTE | 2019-12-30 12:57 | NUR ---
PT MEDICATED PER ORDERS, LUNCH ORDERED.
[2019-12-30] MEDS ORDERED: SODIUM CHLORIDE 0.9% 1,000 ML IV ONE (13:00)
[2019-12-30] MEDS ORDERED: AZITHROMYCIN 500 MG TABLET PO ONE (13:00)
[2019-12-30 13:02] LABS: ANION GAP 7 mmol/L (5-15); CALCIUM 8.8 mg/dL (8.5-10.1); CHLORIDE 111 mmol/L (98-107); CREATININE 0.96 mg/dL (0.55-1.02)
--- NOTE | 2019-12-30 13:24 | NUR ---
RPEORT GIVEN TO DUTCH BRANDT. PT TO TRANSFER TO INPATIENT STATUS.
[2019-12-30] MEDS ORDERED: SODIUM CHLORIDE FLUSH 10ML SYR IVF PRN (13:30)
[2019-12-30 13:38] LABS: BASOPHILS # (AUTO) 0.06 x10^3/uL (0-0.1); BASOPHILS % (AUTO) 0 % (0-1); EOSINOPHILS # (AUTO) 0.11 x10^3/uL (0-0.4); EOSINOPHILS % (AUTO) 1 % (1-7); LYMPHOCYTES # (AUTO) 0.66 x10^3/uL (1-3.4); LYMPHOCYTES % (AUTO) 4 % (22-44); MD SCAN; MONOCYTES # (AUTO) 0.07 x10^3/uL (0.2-0.8); MONOCYTES % (AUTO) 0 % (2-9); NEUTROPHILS % (AUTO) 95 % (42-75)
[2019-12-30] MEDS: ALBUTEROL/IPRATROPIUM 2.5MG/0.5MG, 3 ML NPPB SCH ×2 (13:59→19:30)
[2019-12-30 15:00] VITALS: BP 123/85
[2019-12-30 19:25] VITALS: BP 123/81
[2019-12-30] MEDS: BUDESONIDE 0.5 MG/2 ML INHA INH SCH (19:30)
[2019-12-31 00:22] VITALS: BP 136/83
[2019-12-31] MEDS: SODIUM CHLORIDE 0.9% 1,000 ML IV SCH ×2 (00:49→12:01)
[2019-12-31] MEDS: methylPREDNISolone SOD SUCC 125 MG/2 ML IVPush SCH ×3 (04:33→20:46)
[2019-12-31 05:26] LABS: BASOPHILS % (AUTO) 0 % (0-1); EOSINOPHILS % (AUTO) 0 % (1-7); LYMPHOCYTES # (AUTO) 1.13 x10^3/uL (1-3.4); LYMPHOCYTES % (AUTO) 7 % (22-44); MD NO; MEAN CORPUSCULAR HEMOGLOBIN 27.9 pg (27.0-34.8); MEAN CORPUSCULAR HGB CONC 32.6 g/dL (32.4-35.8); MEAN CORPUSCULAR VOLUME 85.6 fL (80-100); MEAN PLATELET VOLUME 10.4 fL (7.4-10.4); MONOCYTES # (AUTO) 0.04 x10^3/uL (0.2-0.8); MONOCYTES % (AUTO) 0 % (2-9); NEUTROPHILS # (AUTO) 14.03 x10^3/uL (1.8-6.8); NEUTROPHILS % (AUTO) 92 % (42-75); PLATELET COUNT 216 x10^3/uL (130-400); RED BLOOD COUNT 5.13 x10^6/uL (3.82-5.3); RED CELL DISTRIBUTION WIDTH 15.4 % (9.6-15.2)
[2019-12-31 05:35] LABS: ANION GAP 9 mmol/L (5-15); CALCIUM 8.9 mg/dL (8.5-10.1); CHLORIDE 113 mmol/L (98-107)
[2019-12-31 05:37] LABS: CREATININE 0.96 mg/dL (0.55-1.02)
[2019-12-31] MEDS: ALBUTEROL/IPRATROPIUM 2.5MG/0.5MG, 3 ML NPPB SCH ×4 (07:00→20:30)
[2019-12-31 07:40] VITALS: BP 150/91
[2019-12-31] MEDS: BUDESONIDE 0.5 MG/2 ML INHA INH SCH ×2 (07:53→20:30)
[2019-12-31] MEDS: CETIRIZINE 10 MG TABLET PO SCH (10:14)
[2019-12-31] MEDS: NEUTRA PHOS K 250 MG TABLET PO SCH ×3 (10:14→20:46)
[2019-12-31] MEDS: GUAIFENESIN/COD200MG-20MG/10ML LIQUID PO SCH ×3 (10:17→20:55)
[2019-12-31] MEDS: ENOXAPARIN 40 MG/0.4 ML SQ SCH (12:01)
[2019-12-31] MEDS ORDERED: AZITHROMYCIN 250 MG TABLET PO ONE (13:00)
[2019-12-31 14:35] VITALS: BP 124/78
[2019-12-31 18:50] VITALS: BP 155/94
[2019-12-31] MEDS: TRAZODONE 50MG TABLET PO SCH (20:46)
[2020-01-01] MEDS: SODIUM CHLORIDE 0.9% 1,000 ML IV SCH (00:03)
[2020-01-01 00:06] VITALS: BP 137/84
[2020-01-01] MEDS: methylPREDNISolone SOD SUCC 125 MG/2 ML IVPush SCH ×3 (05:01→20:50)
[2020-01-01 06:23] LABS: MEAN CORPUSCULAR HEMOGLOBIN 27.9 pg (27.0-34.8); MEAN CORPUSCULAR HGB CONC 32.3 g/dL (32.4-35.8); MEAN CORPUSCULAR VOLUME 86.3 fL (80-100); MEAN PLATELET VOLUME 9.8 fL (7.4-10.4); PLATELET COUNT 218 x10^3/uL (130-400); RED BLOOD COUNT 4.61 x10^6/uL (3.82-5.3); RED CELL DISTRIBUTION WIDTH 14.9 % (9.6-15.2)
[2020-01-01 06:25] LABS: ANION GAP 8 mmol/L (5-15); CALCIUM 8.3 mg/dL (8.5-10.1); CHLORIDE 114 mmol/L (98-107)
[2020-01-01 06:26] LABS: CREATININE 1.04 mg/dL (0.55-1.02)
[2020-01-01 06:37] LABS: MD YES
[2020-01-01 06:38] LABS: BAND#(MANUAL) 0.49 x10^3/uL; BANDS%(MANUAL) 2 % (0-7); LYMPH#(MANUAL) 1.94 x10^3/uL (1-3.4); LYMPHS% (MANUAL) 8 % (22-44); SEG#(MANUAL) 21.87 x10^3/uL (1.8-6.8); SEGS% (MANUAL) 90 % (42-75)
[2020-01-01 06:39] VITALS: BP 157/102
[2020-01-01 06:39] LABS: <PLATELET ESTIMATE> ADEQUATE; <PLT MORPHOLOGY> NORMAL PLT MORPH; <RBC MORPHOLOGY> NORMAL
[2020-01-01] MEDS: ALBUTEROL/IPRATROPIUM 2.5MG/0.5MG, 3 ML NPPB SCH ×4 (07:00→19:38)
[2020-01-01] MEDS: BUDESONIDE 0.5 MG/2 ML INHA INH SCH ×2 (08:26→19:38)
[2020-01-01 08:30] VITALS: BP 139/98
[2020-01-01] MEDS: GUAIFENESIN/COD200MG-20MG/10ML LIQUID PO SCH ×3 (09:17→20:49)
[2020-01-01] MEDS: CETIRIZINE 10 MG TABLET PO SCH (09:18)
[2020-01-01 10:09] VITALS: BP 130/80
[2020-01-01 13:09] VITALS: BP 121/74
[2020-01-01] MEDS: ENOXAPARIN 40 MG/0.4 ML SQ SCH (13:30)
[2020-01-01 20:33] VITALS: BP 141/88
[2020-01-01] MEDS: TRAZODONE 50MG TABLET PO SCH (20:49)
[2020-01-02 00:53] VITALS: BP 130/82
[2020-01-02 06:08] LABS: MEAN CORPUSCULAR HEMOGLOBIN 27.7 pg (27.0-34.8); MEAN CORPUSCULAR HGB CONC 31.9 g/dL (32.4-35.8); MEAN PLATELET VOLUME 10.3 fL (7.4-10.4); PLATELET COUNT 216 x10^3/uL (130-400); RED BLOOD COUNT 4.41 x10^6/uL (3.82-5.3); RED CELL DISTRIBUTION WIDTH 15.6 % (9.6-15.2)
[2020-01-02 06:16] LABS: ANION GAP 7 mmol/L (5-15); CALCIUM 8.4 mg/dL (8.5-10.1); CHLORIDE 114 mmol/L (98-107)
[2020-01-02 06:19] LABS: CREATININE 0.85 mg/dL (0.55-1.02)
[2020-01-02 06:59] LABS: BASOPHILS % (AUTO) 0 % (0-1); EOSINOPHILS % (AUTO) 0 % (1-7); LYMPHOCYTES % (AUTO) 5 % (22-44); MD SCAN; MONOCYTES # (AUTO) 0.25 x10^3/uL (0.2-0.8); MONOCYTES % (AUTO) 1 % (2-9); NEUTROPHILS # (AUTO) 18.34 x10^3/uL (1.8-6.8); NEUTROPHILS % (AUTO) 94 % (42-75)
[2020-01-02] MEDS: ALBUTEROL/IPRATROPIUM 2.5MG/0.5MG, 3 ML NPPB SCH ×2 (07:00→11:00)
[2020-01-02] MEDS: BUDESONIDE 0.5 MG/2 ML INHA INH SCH (07:00)
[2020-01-02] MEDS ORDERED: BENZ100C PO (08:26)
[2020-01-02] MEDS ORDERED: IPRA3AMP30 NPPB (08:26)
[2020-01-02] MEDS ORDERED: FLUT12AE INH (08:26)
[2020-01-02] MEDS: CETIRIZINE 10 MG TABLET PO SCH (08:32)
[2020-01-02] MEDS: GUAIFENESIN/COD200MG-20MG/10ML LIQUID PO SCH (08:32)
[2020-01-02] MEDS: methylPREDNISolone SOD SUCC 125 MG/2 ML IVPush SCH (08:32)
[2020-01-02 08:40] VITALS: BP 102/65
[2020-01-02] MEDS: ENOXAPARIN 40 MG/0.4 ML SQ SCH (12:30)
[2020-01-02] MEDS ORDERED: PRED20TA PO (14:38)
== END 2020-01-02 14:45 | disposition home or self-care (01) | DRG 133 ==
LOC: ED 10:17 → EDIP 12:14 → 4NE 13:40 → 3N 01-02 00:28 → DCLOUNGE 01-02 14:36
PROVIDERS: ADMIT Internal Medicine; ATTEND Internal Medicine
DX: J96.00 Acute respiratory failure, unspecified whether with hypoxia or hypercapnia (principal); E83.39 Other disorders of phosphorus metabolism; J44.9 Chronic obstructive pulmonary disease, unspecified; J45.51 Severe persistent asthma with (acute) exacerbation; D72.829 Elevated white blood cell count, unspecified; F41.1 Generalized anxiety disorder; I35.1 Nonrheumatic aortic (valve) insufficiency; Z77.22 Contact with and (suspected) exposure to environmental tobacco smoke (acute) (chronic); Z87.891 Personal history of nicotine dependence; Z91.19 Patient's noncompliance with other medical treatment and regimen
CPT/HCPCS: 36415; 71045; 80048; 83735; 84100; 84145; 85025; 87070; 87205; 93005; 94640; 94762; 96365; 96366; G0378; J1650; J7613; J7620; J7626; J0360; J2930; J3475; J7030; J7512

== ENCOUNTER 2020-06-08 08:45 | Emergency (ER) | payer MEDICAID ==
[~2020-06-08] VITALS: Ht 157.5 cm; Wt 49.3 kg
[~2020-06-08 08:45] MED LIST changes: +BENZ100C PO; +PRED20TA PO
[2020-06-08] MEDS ORDERED: ALBUTEROL/IPRATROPIUM 2.5MG/0.5MG, 3 ML ONE (09:27)
[2020-06-08] MEDS ORDERED: ALBUTEROL/IPRATROPIUM 2.5MG/0.5MG, 3 ML NPPB ONE (09:30)
--- NOTE | 2020-06-08 09:35 | NUR ---
PT MEDICATED WITH PREDNISONE. BREATHING TREATMENT ADMINISTERED AND IN PROGRESS.
[2020-06-08 09:38] LABS: BASOPHILS # (AUTO) 0.04 x10^3/uL (0-0.1); BASOPHILS % (AUTO) 1 % (0-1); EOSINOPHILS # (AUTO) 1.32 x10^3/uL (0-0.4); EOSINOPHILS % (AUTO) 19 % (1-7); LYMPHOCYTES # (AUTO) 1.77 x10^3/uL (1-3.4); LYMPHOCYTES % (AUTO) 25 % (22-44); MD NO; MEAN CORPUSCULAR HEMOGLOBIN 28.6 pg (27.0-34.8); MEAN CORPUSCULAR HGB CONC 32.4 g/dL (32.4-35.8); MEAN CORPUSCULAR VOLUME 88.3 fL (80-100); MEAN PLATELET VOLUME 9.8 fL (7.4-10.4); MONOCYTES # (AUTO) 0.46 x10^3/uL (0.2-0.8); MONOCYTES % (AUTO) 7 % (2-9); NEUTROPHILS # (AUTO) 3.46 x10^3/uL (1.8-6.8); NEUTROPHILS % (AUTO) 49 % (42-75); PLATELET COUNT 183 x10^3/uL (130-400); RED BLOOD COUNT 5.11 x10^6/uL (3.82-5.3); RED CELL DISTRIBUTION WIDTH 13.9 % (9.6-15.2)
[2020-06-08 09:43] LABS: ALBUMIN 3.7 g/dL (3.4-5.0); ANION GAP 6 mmol/L (5-15); CALCIUM 8.7 mg/dL (8.5-10.1); CHLORIDE 114 mmol/L (98-107); CREATININE 0.99 mg/dL (0.55-1.02)
[2020-06-08 09:47] LABS: TROPONIN I < 0.015 ng/mL (0.000-0.045)
[2020-06-08 10:06] VITALS: BP 142/88
--- NOTE | 2020-06-08 10:06 | NUR ---
TASK RN: PT RESTING ON RODDY. NADN. JACINTO. PT CHART REVIEWED AND PLACED FOR RECHECK.
--- NOTE | 2020-06-08 11:11 | NUR ---
Patient given discharge instructions and they have confirmed that they understand the instructions. Patient ambulatory with steady gait.
== END 2020-06-08 11:12 | disposition home or self-care (01) ==
LOC: ED 09:47
DX: J45.901 Unspecified asthma with (acute) exacerbation (principal); R06.02 Shortness of breath; R05 Cough; R07.89 Other chest pain; I51.7 Cardiomegaly
CPT/HCPCS: 36415; 71045; 80048; 82040; 84484; 85025; 93005; 94640; 99285; J7512

== ENCOUNTER 2020-06-21 10:00 | Emergency (ER) | payer MEDICAID ==
[~2020-06-21] VITALS: Ht 157.5 cm; Wt 48.0 kg
[2020-06-21] MEDS ORDERED: ALBUTEROL SULFATE 2.5 MG/3 ML NPPB ONE (10:30)
[2020-06-21] MEDS ORDERED: ALBUTEROL SULFATE 2.5 MG/3 ML ONE (10:32)
[2020-06-21 11:04] LABS: BASOPHILS # (AUTO) 0.04 x10^3/uL (0-0.1); BASOPHILS % (AUTO) 1 % (0-1); EOSINOPHILS # (AUTO) 1.55 x10^3/uL (0-0.4); EOSINOPHILS % (AUTO) 20 % (1-7); LYMPHOCYTES # (AUTO) 1.84 x10^3/uL (1-3.4); LYMPHOCYTES % (AUTO) 24 % (22-44); MD NO; MEAN CORPUSCULAR HEMOGLOBIN 28.5 pg (27.0-34.8); MEAN CORPUSCULAR HGB CONC 31.9 g/dL (32.4-35.8); MEAN CORPUSCULAR VOLUME 89.4 fL (80-100); MEAN PLATELET VOLUME 9.9 fL (7.4-10.4); MONOCYTES # (AUTO) 0.37 x10^3/uL (0.2-0.8); MONOCYTES % (AUTO) 5 % (2-9); NEUTROPHILS # (AUTO) 3.85 x10^3/uL (1.8-6.8); NEUTROPHILS % (AUTO) 50 % (42-75); PLATELET COUNT 184 x10^3/uL (130-400); RED BLOOD COUNT 5.33 x10^6/uL (3.82-5.3); RED CELL DISTRIBUTION WIDTH 13.8 % (9.6-15.2)
[2020-06-21 11:13] LABS: ALBUMIN 3.8 g/dL (3.4-5.0); ANION GAP 6 mmol/L (5-15); CALCIUM 8.8 mg/dL (8.5-10.1); CHLORIDE 114 mmol/L (98-107)
[2020-06-21 11:17] VITALS: BP 141/91
[2020-06-21 11:19] LABS: CREATININE 1.08 mg/dL (0.55-1.02); TROPONIN I < 0.015 ng/mL (0.000-0.045)
== END 2020-06-21 12:07 | disposition home or self-care (01) ==
LOC: ED 12:05
DX: J45.41 Moderate persistent asthma with (acute) exacerbation (principal); Z20.828 Contact with and (suspected) exposure to other viral communicable diseases; M94.0 Chondrocostal junction syndrome [Tietze]; Z98.51 Tubal ligation status
CPT/HCPCS: 36415; 71045; 80048; 82040; 84484; 85025; 87635; 93005; 94640; 99285; J7512; J7613

== ENCOUNTER 2020-06-21 15:42 | Inpatient (IN) | payer MEDICAID ==
[~2020-06-21] VITALS: Ht 157.5 cm; Wt 58.4 kg
--- NOTE | 2020-06-21 16:07 | NUR ---
PT WAS SEEN IN THIS ED EARLIER TODAY AND DC'D WITH RX. PT AT [facility] C/O DIZZINESS AND FEELING LIKE PASSING OUT. PT DROVE HERSELF TO ED.
[2020-06-21] MEDS ORDERED: LORazepam 0.5MG TABLET ONE (16:19)
[2020-06-21] MEDS ORDERED: LORazepam 0.5MG TABLET PO ONE (16:30)
[2020-06-21] MEDS ORDERED: BENZONATATE 100 MG CAPSULE PO PRN (18:30)
[2020-06-21] MEDS ORDERED: POLYETHYLENE GLYCOL 17 GM PACKET PO PRN (18:30)
[2020-06-21] MEDS ORDERED: ONDANSETRON ODT 4 MG PO PRN (18:30)
[2020-06-21] MEDS ORDERED: BISACODYL 10 MG SUPP PR PRN (18:30)
[2020-06-21 20:04] VITALS: BP 124/79
[2020-06-21] MEDS: methylPREDNISolone SOD SUCC 125 MG/2 ML IVPush SCH (20:08)
[2020-06-21] MEDS: SODIUM CHLORIDE FLUSH 10ML SYR IVF SCH (20:09)
[2020-06-21] MEDS ORDERED: BUDESONIDE 0.5 MG/2 ML INHA HHN SCH (21:00)
[2020-06-21] MEDS ORDERED: ALBUTEROL HFA 90 MCG/SPRAY INH PRN (21:30)
[2020-06-21] MEDS: GUAIFENESIN/COD200MG-20MG/10ML LIQUID PO PRN (23:10)
[2020-06-22 03:50] VITALS: BP 139/90
[2020-06-22 04:32] LABS: BASOPHILS % (AUTO) 0 % (0-1); EOSINOPHILS % (AUTO) 0 % (1-7); LYMPHOCYTES # (AUTO) 0.88 x10^3/uL (1-3.4); LYMPHOCYTES % (AUTO) 10 % (22-44); MD NO; MEAN CORPUSCULAR HGB CONC 32.3 g/dL (32.4-35.8); MEAN CORPUSCULAR VOLUME 89.6 fL (80-100); MEAN PLATELET VOLUME 10.6 fL (7.4-10.4); MONOCYTES # (AUTO) 0.02 x10^3/uL (0.2-0.8); MONOCYTES % (AUTO) 0 % (2-9); NEUTROPHILS % (AUTO) 90 % (42-75); PLATELET COUNT 186 x10^3/uL (130-400); RED BLOOD COUNT 5.13 x10^6/uL (3.82-5.3); RED CELL DISTRIBUTION WIDTH 13.4 % (9.6-15.2)
[2020-06-22] MEDS: methylPREDNISolone SOD SUCC 125 MG/2 ML IVPush SCH ×4 (04:32→22:46)
[2020-06-22 04:38] LABS: ANION GAP 6 mmol/L (5-15); CALCIUM 8.7 mg/dL (8.5-10.1); CHLORIDE 113 mmol/L (98-107); CREATININE 1.04 mg/dL (0.55-1.02)
[2020-06-22] MEDS: GUAIFENESIN/COD200MG-20MG/10ML LIQUID PO PRN ×2 (05:14→22:46)
[2020-06-22] MEDS: FLUTICASONE/VILANTEROL 100-25MCG/INH INH SCH (05:14)
[2020-06-22 07:12] VITALS: BP 143/92
[2020-06-22] MEDS: SODIUM CHLORIDE FLUSH 10ML SYR IVF SCH ×2 (09:00→20:35)
[2020-06-22] MEDS: CETIRIZINE 10 MG TABLET PO SCH (09:13)
[2020-06-22] MEDS: SENNA/DOCUSATE TABLET PO SCH (09:13)
[2020-06-22] MEDS: ACETAMINOPHEN 325 MG TABLET PO PRN (12:29)
[2020-06-22 12:59] VITALS: BP 149/87
[2020-06-22 20:36] VITALS: BP 135/87
[2020-06-23 03:11] VITALS: BP 159/101
[2020-06-23] MEDS: ACETAMINOPHEN 325 MG TABLET PO PRN ×3 (03:19→21:56)
[2020-06-23 04:28] VITALS: BP 148/85
[2020-06-23] MEDS: methylPREDNISolone SOD SUCC 125 MG/2 ML IVPush SCH ×4 (04:29→21:49)
[2020-06-23 07:03] VITALS: BP 134/80
[2020-06-23] MEDS: CETIRIZINE 10 MG TABLET PO SCH (08:59)
[2020-06-23] MEDS: FLUTICASONE/VILANTEROL 100-25MCG/INH INH SCH (08:59)
[2020-06-23] MEDS: SENNA/DOCUSATE TABLET PO SCH (08:59)
[2020-06-23] MEDS: SODIUM CHLORIDE FLUSH 10ML SYR IVF SCH ×2 (09:00→21:49)
[2020-06-23 13:19] VITALS: BP 135/84
[2020-06-23 21:51] VITALS: BP 150/90
[2020-06-24 03:46] VITALS: BP 156/89
[2020-06-24] MEDS: methylPREDNISolone SOD SUCC 125 MG/2 ML IVPush SCH ×2 (03:49→09:38)
[2020-06-24] MEDS: FLUTICASONE/VILANTEROL 100-25MCG/INH INH SCH (09:38)
[2020-06-24] MEDS: CETIRIZINE 10 MG TABLET PO SCH (09:38)
[2020-06-24] MEDS: SENNA/DOCUSATE TABLET PO SCH (09:39)
[2020-06-24] MEDS: SODIUM CHLORIDE FLUSH 10ML SYR IVF SCH (09:39)
[2020-06-24 09:58] VITALS: BP 122/75
[2020-06-24] MEDS ORDERED: METH4TAB2 PO (11:38)
[2020-06-24] MEDS ORDERED: OXYC10TA47 PO (15:49)
[2020-06-24] MEDS ORDERED: OXYC5CAP2 PO (15:50)
== END 2020-06-24 16:29 | disposition home or self-care (01) | DRG 133 ==
LOC: ED 16:53 → INTOOBSV 16:54 → EDIP 16:54 → ED 16:57 → 3N 17:48 → OBSVTOIN 06-22 14:42
PROVIDERS: ADMIT Hospitalist; ATTEND Internal Medicine
DX: J96.01 Acute respiratory failure with hypoxia (principal); J45.51 Severe persistent asthma with (acute) exacerbation; F17.210 Nicotine dependence, cigarettes, uncomplicated; J44.9 Chronic obstructive pulmonary disease, unspecified; Z03.818 Encounter for observation for suspected exposure to other biological agents ruled out; Z98.51 Tubal ligation status
CPT/HCPCS: 36415; 71045; 80048; 82040; 84484; 85025; 87635; 93005; 94640; 99285; G0378; J7613; J2930; J7512

== ENCOUNTER → 2020-12-06 | Outpatient (CLI) | payer OTHER ==
[~2020-12-06] MED LIST changes: +METH4TAB2 PO; +OXYC10TA47 PO; +OXYC5CAP2 PO
== END | disposition home or self-care (01) ==
LOC: CFH 14:09
PROVIDERS: ATTEND Internal Medicine Cardiovascular Disease
DX: I08.3 Combined rheumatic disorders of mitral, aortic and tricuspid valves (principal)
CPT/HCPCS: 93306

== ENCOUNTER 2020-12-12 11:14 | Emergency (ER) | payer OTHER ==
[~2020-12-12] VITALS: Ht 157.5 cm; Wt 47.0 kg
--- NOTE | 2020-12-12 11:42 | NUR ---
CARD 5 LEAD, SPO2, B/P IN PLACE. CALL LIGHT WITHIN REACH
--- NOTE | 2020-12-12 12:01 | NUR ---
PT TO CT
[2020-12-12 12:34] LABS: BASOPHILS % (AUTO) 1 % (0-1); EOSINOPHILS % (AUTO) 10 % (1-7); LYMPHOCYTES % (AUTO) 24 % (22-44); MEAN CORPUSCULAR HEMOGLOBIN 29.9 pg (27.0-34.8); MEAN CORPUSCULAR HGB CONC 33.2 g/dL (32.4-35.8); MEAN PLATELET VOLUME 9.6 fL (7.4-10.4); MONOCYTES % (AUTO) 6 % (2-9); NEUTROPHILS % (AUTO) 60 % (42-75); PLATELET COUNT 214 x10^3/uL (130-400); RED BLOOD COUNT 4.88 x10^6/uL (3.82-5.3); RED CELL DISTRIBUTION WIDTH 12.7 % (9.6-15.2)
[2020-12-12 12:42] LABS: MD NO
[2020-12-12 12:45] LABS: ALBUMIN 3.5 g/dL (3.4-5.0); ANION GAP 5 mmol/L (5-15); CALCIUM 8.5 mg/dL (8.5-10.1); CHLORIDE 109 mmol/L (98-107); CREATININE 1.06 mg/dL (0.55-1.02)
[2020-12-12 12:49] LABS: TROPONIN I < 0.015 ng/mL (0.000-0.045)
[2020-12-12 13:36] VITALS: BP 140/78
== END 2020-12-12 13:37 | disposition home or self-care (01) ==
LOC: ED 13:08
DX: R42 Dizziness and giddiness (principal); R00.2 Palpitations; R94.31 Abnormal electrocardiogram [ECG] [EKG]; R07.9 Chest pain, unspecified; J44.9 Chronic obstructive pulmonary disease, unspecified; Z87.891 Personal history of nicotine dependence; Z98.51 Tubal ligation status
CPT/HCPCS: 36415; 71046; 80048; 82040; 84484; 85025; 93005; 99285

== ENCOUNTER 2021-02-11 05:10 | Emergency (ER) | payer OTHER ==
[~2021-02-11] VITALS: Ht 157.5 cm; Wt 47.5 kg
--- NOTE | 2021-02-11 05:20 | NUR ---
INITIAL PT CONTACT. PT PRESENTS TO THE ED C/O SHORTNESS OF BREATH X2 DAYS. HX OF ASTHMA. PT STATES SHE HAS BEEN USING HER INHALER AT HOME AND IS NOW OUT, ALSO USING HOME NEBULIZER WITH NO RELIEF. PT ALSO C/O SORE THROAT. PT UNSURE IF SHE HAS BEEN EXPOSED TO ANYONE COVID +. UPON ARRIVAL TO ROOM, PT IS BREATHING RAPIDLY, SPEAKING 2-3 WORD SENTENCES. PT PLACED ON CONTINUOUS PULSE OX AND CARDIAC MONITORING. CALL LIGHT AND BELONGINGS WITHIN REACH. ERP AT BEDSIDE. WILL MEDICATE PT PER EMAR.
[2021-02-11] MEDS ORDERED: ALBUTEROL/IPRATROPIUM 2.5MG/0.5MG, 3 ML ONE (05:31)
[2021-02-11] MEDS ORDERED: DEXAMETHASONE 4 MG/ML, 5ML ONE (05:31)
[2021-02-11] MEDS ORDERED: ALBUTEROL/IPRATROPIUM 2.5MG/0.5MG, 3 ML NPPB ONE (06:00)
[2021-02-11] MEDS ORDERED: DEXAMETHASONE 4 MG/ML, 1ML IVPush ONE (06:00)
[2021-02-11] MEDS ORDERED: SODIUM CHLORIDE FLUSH 10ML SYR IVF ONE (06:00)
--- NOTE | 2021-02-11 06:00 | NUR ---
PT SITTING UPRIGHT ON CAILIN PEREYRA VSS. PT REPORTS "FEELING A LOT BETTER FOLLOWING THE BREATHING TX". PT DENIES ANY NEEDS AT THIS TIME.
[2021-02-11 06:21] LABS: BASOPHILS % (AUTO) 0 % (0-1); EOSINOPHILS % (AUTO) 5 % (1-7); LYMPHOCYTES % (AUTO) 9 % (22-44); MEAN CORPUSCULAR HEMOGLOBIN 29.9 pg (27.0-34.8); MEAN CORPUSCULAR HGB CONC 32.9 g/dL (32.4-35.8); MEAN PLATELET VOLUME 9.9 fL (7.4-10.4); MONOCYTES % (AUTO) 4 % (2-9); NEUTROPHILS % (AUTO) 82 % (42-75); PLATELET COUNT 208 x10^3/uL (130-400); RED BLOOD COUNT 4.73 x10^6/uL (3.82-5.3); RED CELL DISTRIBUTION WIDTH 12.9 % (9.6-15.2)
[2021-02-11 06:24] LABS: MD NO
[2021-02-11 06:26] LABS: ALBUMIN 3.9 g/dL (3.4-5.0); ANION GAP 5 mmol/L (5-15); CALCIUM 8.4 mg/dL (8.5-10.1); CHLORIDE 114 mmol/L (98-107)
[2021-02-11 06:27] LABS: CREATININE 1.09 mg/dL (0.55-1.02)
--- NOTE | 2021-02-11 06:51 | NUR ---
Kiesha rivas in [facility] - 02/11/21 at 0651 by ALLI REPORT TO CAITIE JUDD
--- NOTE | 2021-02-11 06:51 | NUR ---
REPORT TO CAITIE JUDD
--- NOTE | 2021-02-11 06:52 | NUR ---
REPORT FROM TANIA
--- NOTE | 2021-02-11 07:18 | NUR ---
PT TO CT
[2021-02-11 07:46] VITALS: BP 145/83
[2021-02-11] MEDS ORDERED: CEFTRIAXONE PMX 1GM/50ML 50 ML ONE (07:50)
[2021-02-11] MEDS ORDERED: DOXYCYCLINE 100MG TABLET ONE (07:52)
[2021-02-11] MEDS ORDERED: CEFTRIAXONE PMX 1GM/50ML 50 ML IV ONE (08:00)
[2021-02-11] MEDS ORDERED: DOXYCYCLINE 100MG TABLET PO ONE (08:00)
--- NOTE | 2021-02-11 08:22 | NUR ---
Patient given discharge instructions and they have confirmed that they understand the instructions. Patient ambulatory with steady gait.
[2021-02-11] MEDS ORDERED: DOXY100T23 PO (19:59)
[2021-02-11] MEDS ORDERED: ALBU90AE2 INH (19:59)
== END 2021-02-11 08:24 | disposition home or self-care (01) ==
LOC: ED 05:37
DX: J44.9 Chronic obstructive pulmonary disease, unspecified (principal); J20.9 Acute bronchitis, unspecified; Z87.891 Personal history of nicotine dependence
CPT/HCPCS: 36415; 71045; 71250; 80048; 82040; 85025; 94640; 96365; 96375; 99285; J0696; J1100

== ENCOUNTER 2021-02-11 17:38 | Inpatient (IN) | payer OTHER ==
[~2021-02-11] VITALS: Ht 157.5 cm; Wt 51.7 kg
[2021-02-11] MEDS ORDERED: ALBUTEROL/IPRATROPIUM 2.5MG/0.5MG, 3 ML ONE ×2 (18:19→20:58)
[2021-02-11] MEDS: ALBUTEROL/IPRATROPIUM 2.5MG/0.5MG, 3 ML NPPB ONE ×2 (18:30→21:04)
--- NOTE | 2021-02-11 18:32 | NUR ---
CC OF SOB. PT SEEN HERE EARLIER IN DAY BUT STATES HER BREATHING GOT WORSE ONCE HOME. PT HAS INSPIRATORY WHEEZING THROUGHOUT ALL LUNG RON. PT SPEAKING 3-4 WORDS AT A TIME AND HAS RAPID BREATHING. CONNECTED TO CARDIAC MONITORS AND CONTINUOUS PULSE OX
--- NOTE | 2021-02-11 18:54 | NUR ---
pt states she feels better after neb treatment, lungs are clear ant/post in all devi.
[2021-02-11] MEDS ORDERED: ALBU90AE2 INH (19:59)
[2021-02-11] MEDS ORDERED: DOXY100T23 PO (19:59)
--- NOTE | 2021-02-11 20:00 | NUR ---
PT STATES SHE FEELS DIZZY AND FEEL LIKE SHE IS WHEEZING AGAIN. JORDANA MADE AWARE.
[2021-02-11] MEDS ORDERED: MAGNESIUM SULFATE PMX 2GM/50ML 50 ML IV ONE (21:00)
[2021-02-11] MEDS ORDERED: ALBUTEROL/IPRATROPIUM 2.5MG/0.5MG, 3 ML NPPB ONE (21:00)
[2021-02-11] MEDS ORDERED: MAGNESIUM SULFATE PMX 2GM/50ML 50 ML ONE (21:10)
--- NOTE | 2021-02-11 22:01 | NUR ---
PT A&OX4. ON CR MONITOR, AND 2ND NEBULIZED MEDICINE TREATMENT COMPLETE. PT REMAINS IN MILD RESPIRATORY DISTRESS AT THIS TIME. STILL HAVING 2-3 WORD SENTENCES. USING ACCESORY MUSCLES AND SUPRASTERNAL NOTCH IS RETRACTING WITH RESPIRATIONS. MD NOTIFIED.
--- NOTE | 2021-02-11 22:04 | NUR ---
PA TO BEDSIDE TO EVAL PT.
[2021-02-11] MEDS ORDERED: methylPREDNISolone SOD SUCC 125 MG/2 ML IVPush ONE (23:00)
[2021-02-11] MEDS ORDERED: ONDANSETRON ODT 4 MG PO PRN (23:00)
[2021-02-11] MEDS ORDERED: BISACODYL 10 MG SUPP PR PRN (23:00)
[2021-02-11] MEDS ORDERED: POLYETHYLENE GLYCOL 17 GM PACKET PO PRN (23:00)
[2021-02-12] VITALS (7 sets, daily range): BP systolic 145–174; BP diastolic 77–101
[2021-02-12] MEDS: BENZONATATE 100 MG CAPSULE PO PRN ×2 (00:35→10:15)
[2021-02-12] MEDS: SODIUM CHLORIDE FLUSH 10ML SYR IVF SCH ×3 (00:35→20:30)
[2021-02-12] MEDS: ACETAMINOPHEN 325 MG TABLET PO PRN ×3 (00:39→20:16)
[2021-02-12] MEDS ORDERED: LABETALOL 5MG/ML, 20ML IVPush ONE (02:00)
[2021-02-12] MEDS: methylPREDNISolone SOD SUCC 125 MG/2 ML IVPush SCH ×4 (05:41→22:42)
[2021-02-12 05:45] LABS: BASOPHILS % (AUTO) 0 % (0-1); EOSINOPHILS % (AUTO) 0 % (1-7); LYMPHOCYTES % (AUTO) 3 % (22-44); MEAN CORPUSCULAR HEMOGLOBIN 29.9 pg (27.0-34.8); MEAN CORPUSCULAR HGB CONC 32.4 g/dL (32.4-35.8); MONOCYTES % (AUTO) 1 % (2-9); NEUTROPHILS % (AUTO) 97 % (42-75); PLATELET COUNT 212 x10^3/uL (130-400); RED BLOOD COUNT 4.91 x10^6/uL (3.82-5.3); RED CELL DISTRIBUTION WIDTH 13.4 % (9.6-15.2)
[2021-02-12 05:52] LABS: MD NO
[2021-02-12 05:56] LABS: ANION GAP 6 mmol/L (5-15); CALCIUM 9.1 mg/dL (8.5-10.1); CHLORIDE 111 mmol/L (98-107)
[2021-02-12] MEDS: ALBUTEROL HFA 90 MCG/SPRAY INH SCH ×5 (06:00→22:00)
[2021-02-12 06:17] LABS: MICROSCOPIC NOT IND
[2021-02-12] MEDS: FLUTICASONE/VILANTEROL 200-25MCG/INH INH SCH (09:00)
[2021-02-12] MEDS: SENNA/DOCUSATE TABLET PO SCH (09:00)
[2021-02-12] MEDS ORDERED: ALBUTEROL/IPRATROPIUM 2.5MG/0.5MG, 3 ML HHN SCH (16:00)
[2021-02-12] MEDS: ENOXAPARIN 40 MG/0.4 ML SQ SCH (16:51)
[2021-02-12] MEDS: CEFTRIAXONE PMX 1GM/50ML 50 ML IV SCH (16:52)
[2021-02-12] MEDS: DOXYCYCLINE 100MG TABLET PO SCH ×2 (17:38→20:30)
[2021-02-12] MEDS: INSULIN LISPRO 100 UNITS/ML, PEN SQ-INSULIN SCH ×2 (17:39→20:30)
[2021-02-12] MEDS: PANTOPRAZOLE 40MG TABLET PO SCH (20:30)
[2021-02-13 00:36] VITALS: BP 152/92
[2021-02-13] MEDS: ALBUTEROL HFA 90 MCG/SPRAY INH SCH ×4 (02:00→14:16)
[2021-02-13] MEDS: methylPREDNISolone SOD SUCC 125 MG/2 ML IVPush SCH ×4 (05:19→23:23)
[2021-02-13 05:32] LABS: BASOPHILS % (AUTO) 0 % (0-1); EOSINOPHILS % (AUTO) 0 % (1-7); LYMPHOCYTES % (AUTO) 4 % (22-44); MEAN CORPUSCULAR HGB CONC 32.8 g/dL (32.4-35.8); MEAN PLATELET VOLUME 10.1 fL (7.4-10.4); MONOCYTES % (AUTO) 2 % (2-9); NEUTROPHILS % (AUTO) 94 % (42-75); PLATELET COUNT 205 x10^3/uL (130-400); RED BLOOD COUNT 4.65 x10^6/uL (3.82-5.3); RED CELL DISTRIBUTION WIDTH 13.4 % (9.6-15.2)
[2021-02-13 05:35] LABS: MD NO
[2021-02-13 05:37] LABS: ANION GAP 7 mmol/L (5-15); C-REACTIVE PROTEIN, QUANT 0.26 mg/dL (0.02-0.49); CALCIUM 9.2 mg/dL (8.5-10.1); CHLORIDE 112 mmol/L (98-107); CREATININE 1.06 mg/dL (0.55-1.02)
[2021-02-13 06:15] VITALS: BP 149/98
[2021-02-13] MEDS: FLUTICASONE/VILANTEROL 200-25MCG/INH INH SCH (06:47)
[2021-02-13] MEDS: INSULIN LISPRO 100 UNITS/ML, PEN SQ-INSULIN SCH ×4 (07:00→20:55)
[2021-02-13] MEDS: SENNA/DOCUSATE TABLET PO SCH (08:09)
[2021-02-13] MEDS: SODIUM CHLORIDE FLUSH 10ML SYR IVF SCH ×2 (08:10→20:56)
[2021-02-13] MEDS: PANTOPRAZOLE 40MG TABLET PO SCH ×2 (08:10→20:56)
[2021-02-13] MEDS: DOXYCYCLINE 100MG TABLET PO SCH ×2 (08:10→20:56)
[2021-02-13 12:07] VITALS: BP 146/91
[2021-02-13] MEDS: ENOXAPARIN 40 MG/0.4 ML SQ SCH (16:24)
[2021-02-13] MEDS: CEFTRIAXONE PMX 1GM/50ML 50 ML IV SCH (16:25)
[2021-02-13 19:05] VITALS: BP 146/82
[2021-02-14] VITALS (7 sets, daily range): BP systolic 146–186; BP diastolic 77–114
[2021-02-14] MEDS ORDERED: hydrALAzine 20 MG/ML, 1ML IV ONE (01:25)
[2021-02-14 05:58] LABS: ANION GAP 8 mmol/L (5-15); CALCIUM 8.6 mg/dL (8.5-10.1); CHLORIDE 111 mmol/L (98-107); CREATININE 0.98 mg/dL (0.55-1.02)
[2021-02-14] MEDS: FLUTICASONE/VILANTEROL 200-25MCG/INH INH SCH (06:42)
[2021-02-14] MEDS: ALBUTEROL HFA 90 MCG/SPRAY INH PRN (06:44)
[2021-02-14] MEDS: INSULIN LISPRO 100 UNITS/ML, PEN SQ-INSULIN SCH ×4 (07:00→21:00)
[2021-02-14] MEDS: SODIUM CHLORIDE FLUSH 10ML SYR IVF SCH ×2 (07:18→19:30)
[2021-02-14] MEDS: SENNA/DOCUSATE TABLET PO SCH (07:19)
[2021-02-14] MEDS: methylPREDNISolone SOD SUCC 125 MG/2 ML IVPush SCH ×2 (07:26→15:45)
[2021-02-14] MEDS: DOXYCYCLINE 100MG TABLET PO SCH ×2 (09:13→19:29)
[2021-02-14] MEDS: AMLODIPINE 2.5 MG TABLET PO SCH (09:13)
[2021-02-14] MEDS: PANTOPRAZOLE 40MG TABLET PO SCH ×2 (09:13→19:29)
[2021-02-14] MEDS: ENOXAPARIN 40 MG/0.4 ML SQ SCH (16:43)
[2021-02-14] MEDS: CEFTRIAXONE PMX 1GM/50ML 50 ML IV SCH (16:44)
[2021-02-14] MEDS ORDERED: LISINOPRIL 10 MG TABLET PO ONE (19:30)
[2021-02-14] MEDS ORDERED: methylPREDNISolone SOD SUCC 125 MG/2 ML IVPush SCH (23:30)
[2021-02-15 00:42] VITALS: BP 146/90
[2021-02-15 05:11] LABS: BASOPHILS % (AUTO) 0 % (0-1); EOSINOPHILS % (AUTO) 0 % (1-7); LYMPHOCYTES % (AUTO) 7 % (22-44); MEAN CORPUSCULAR HEMOGLOBIN 30.2 pg (27.0-34.8); MEAN PLATELET VOLUME 9.8 fL (7.4-10.4); MONOCYTES % (AUTO) 2 % (2-9); NEUTROPHILS % (AUTO) 91 % (42-75); PLATELET COUNT 222 x10^3/uL (130-400); RED BLOOD COUNT 4.99 x10^6/uL (3.82-5.3); RED CELL DISTRIBUTION WIDTH 13.3 % (9.6-15.2)
[2021-02-15 05:13] LABS: MD NO
[2021-02-15 05:23] LABS: ANION GAP 5 mmol/L (5-15); CALCIUM 8.5 mg/dL (8.5-10.1); CHLORIDE 106 mmol/L (98-107)
[2021-02-15 05:24] LABS: CREATININE 0.93 mg/dL (0.55-1.02)
[2021-02-15] MEDS: INSULIN LISPRO 100 UNITS/ML, PEN SQ-INSULIN SCH ×3 (07:00→16:00)
[2021-02-15] MEDS: FLUTICASONE/VILANTEROL 200-25MCG/INH INH SCH (07:15)
[2021-02-15] MEDS: ALBUTEROL HFA 90 MCG/SPRAY INH PRN (07:15)
[2021-02-15] MEDS: PANTOPRAZOLE 40MG TABLET PO SCH ×2 (07:21→21:49)
[2021-02-15] MEDS: AMLODIPINE 2.5 MG TABLET PO SCH (07:21)
[2021-02-15] MEDS: SODIUM CHLORIDE FLUSH 10ML SYR IVF SCH ×2 (07:21→21:49)
[2021-02-15] MEDS: methylPREDNISolone SOD SUCC 125 MG/2 ML IVPush SCH ×3 (07:21→16:57)
[2021-02-15] MEDS: DOXYCYCLINE 100MG TABLET PO SCH ×2 (07:21→21:49)
[2021-02-15] MEDS: SENNA/DOCUSATE TABLET PO SCH (07:21)
[2021-02-15 07:59] VITALS: BP 128/84
[2021-02-15 15:14] VITALS: BP 145/91
[2021-02-15] MEDS: ENOXAPARIN 40 MG/0.4 ML SQ SCH (16:14)
[2021-02-15] MEDS: CEFTRIAXONE PMX 1GM/50ML 50 ML IV SCH (16:53)
[2021-02-15 19:22] VITALS: BP 167/104
[2021-02-15 21:52] VITALS: BP 154/94
[2021-02-16 00:56] VITALS: BP 160/98
[2021-02-16] MEDS: methylPREDNISolone SOD SUCC 125 MG/2 ML IVPush SCH (01:44)
[2021-02-16 07:01] VITALS: BP 159/96
[2021-02-16] MEDS ORDERED: methylPREDNISolone SOD SUCC 40 MG/ML IV SCH ×3 (09:00→21:00)
[2021-02-16] MEDS: SENNA/DOCUSATE TABLET PO SCH (09:00)
[2021-02-16] MEDS: FLUTICASONE/VILANTEROL 200-25MCG/INH INH SCH (09:15)
[2021-02-16] MEDS: SODIUM CHLORIDE FLUSH 10ML SYR IVF SCH (09:58)
[2021-02-16] MEDS: PANTOPRAZOLE 40MG TABLET PO SCH (09:58)
[2021-02-16] MEDS: AMLODIPINE 2.5 MG TABLET PO SCH (09:58)
[2021-02-16] MEDS: DOXYCYCLINE 100MG TABLET PO SCH (09:59)
[2021-02-16 12:25] VITALS: BP 130/82
[2021-02-16] MEDS ORDERED: AMLO2.5T5 PO (12:55)
[2021-02-16] MEDS ORDERED: ALBU18HF INH (12:55)
[2021-02-16] MEDS ORDERED: AMOX1TAB64 PO (12:55)
[2021-02-16] MEDS ORDERED: DOXY100T23 PO (12:55)
[2021-02-16] MEDS ORDERED: PANT40TA6 PO (12:55)
[2021-02-16] MEDS ORDERED: FLUT1BLS INH (12:55)
[2021-02-16] MEDS ORDERED: PRED10TA PO (12:55)
[2021-02-16] MEDS: ENOXAPARIN 40 MG/0.4 ML SQ SCH (14:51)
== END 2021-02-16 16:13 | disposition home or self-care (01) | DRG 202 ==
LOC: ED 18:40 → EDIP 22:55 → 3N 02-12 00:19 → DCLOUNGE 02-16 15:55
PROVIDERS: ADMIT Internal Medicine; ATTEND Internal Medicine
DX: J20.9 Acute bronchitis, unspecified (principal); J45.52 Severe persistent asthma with status asthmaticus; E87.6 Hypokalemia; J02.8 Acute pharyngitis due to other specified organisms; R03.0 Elevated blood-pressure reading, without diagnosis of hypertension; D72.829 Elevated white blood cell count, unspecified; I35.1 Nonrheumatic aortic (valve) insufficiency; Z82.49 Family history of ischemic heart disease and other diseases of the circulatory system; Z87.01 Personal history of pneumonia (recurrent)
CPT/HCPCS: 36415; 80048; 81003; 82962; 83735; 85025; 86140; 87070; 87081; 87205; 87880; 93005; 94640; 96374; G0378; J0696; J1650; J0360; J1815; J2920; J2930; J3475